=== PATIENT | female | born 1940 | race Caucasian/White ===

== ENCOUNTER → 2017-03-09 | Outpatient (CLI) | payer MEDICARE ==
--- NOTE | 2017-03-09 09:42 | REP ---
CAROTID ULTRASOUND: Real-time ultrasound evaluation and duplex Doppler interrogation of the extracranial carotid vasculature is performed. There is mild plaquing and narrowing in both carotid bulbs extending into the internal and external carotid arteries. Luminal narrowing is less than 50%. There is no evidence of hemodynamically significant stenosis of either internal carotid artery. Normal flow velocities are seen. The vertebral arteries demonstrate normal direction of flow. RIGHT LEFT Peak systolic velocity ICA 83.4 cm/s 82.6 cm/s End diastolic velocity ICA 27.2 cm/s 20 cm/s Peak systolic velocity CCA 119.4 cm/s 98.1 cm/s Peak systolic velocity ECA 82.3 cm/s 107.2 cm/s ICA/CCA ratio 0.7 0.84 IMPRESSION: Bilateral luminal narrowing of the internal carotid arteries less than 50%. No evidence of hemodynamically significant stenosis. Signed by Oral Huynh MD 03/09/2017 09:33 A
== END ==
LOC: M RAD 08:48
PROVIDERS: ATTEND Internal Medicine
DX: I44.7 Left bundle-branch block, unspecified (principal); Z95.1 Presence of aortocoronary bypass graft; I25.10 Atherosclerotic heart disease of native coronary artery without angina pectoris; R09.89 Other specified symptoms and signs involving the circulatory and respiratory systems

== ENCOUNTER → 2018-07-09 | Outpatient (CLI) | payer MEDICARE | LOC: M WHC 10:04 | DX: Z01.419 Encounter for gynecological examination (general) (routine) without abnormal findings (principal); Z12.31 Encounter for screening mammogram for malignant neoplasm of breast (principal); Z92.0 Personal history of contraception; Z12.12 Encounter for screening for malignant neoplasm of rectum; Z92.29 Personal history of other drug therapy | CPT/HCPCS: 77067 ==

== ENCOUNTER → 2019-04-02 | Outpatient (CLI) | payer MEDICARE ==
--- NOTE | 2019-04-02 15:47 | REP ---
Clinical: Pain. Technique: AP, lateral, bilateral oblique views of the right wrist. Findings: Comminuted Colles' fracture of the distal radius with overlying soft tissue swelling and posterior angulation. Impression: Acute comminuted Colles' fracture of the distal radial metaphysis. Electronically Signed by Rodney Burleson MD 04/02/2019 03:39 P
--- NOTE | 2019-04-02 15:48 | REP ---
Clinical: Pain. Fall. Technique: AP, lateral, bilateral oblique views of the right hand. Findings: There is a comminuted Colles' fracture of the distal radial metaphysis with posterior angulation and overlying soft tissue swelling. Remainder of the hand including carpal bones appear intact and normal. Impression: Comminuted Colles' fracture of the distal radial metaphysis. Electronically Signed by Rodney Burleson MD 04/02/2019 03:40 P
== END ==
LOC: M WUC 15:08
PROVIDERS: ATTEND Physician Assistant
DX: S52.531A Colles' fracture of right radius, initial encounter for closed fracture (principal); X58.XXXA Exposure to other specified factors, initial encounter; Y92.89 Other specified places as the place of occurrence of the external cause

== ENCOUNTER → 2020-08-13 | Outpatient (CLI) | payer MEDICARE ==
--- NOTE | 2020-08-13 10:40 | REPMRS ---
Patient History The patient states she had a clinical breast exam in August 2020. Family history of breast cancer at age 50 or over in paternal aunt. Took hormonal contraceptives for 1 year. Took unspecified hormones for 2 years. 3D TOMOSYNTHESIS WAS PERFORMED. The Bill Ghosh lifetime risk for breast cancer is 3.4%. Volpara breast density b. Digital Woman Screen Mammo: August 13, 2020 - Exam #: [id number] Bilateral CC and MLO view(s) were taken. Technologist: Dora Hudson, Technologist Prior study comparison: July 09, 2018, bilateral digital woman screen mammo performed at [facility]. June 15, 2016, digital woman screen mammo performed at [facility]. FINDINGS: There are scattered fibroglandular densities. There has been no change in the appearance of the mammogram from the prior studies. There is a mild amount of residual fibroglandular tissue which is fairly symmetric. There is no interval development of dominant mass, architectural distortion, or clustered microcalcification suggestive of malignancy. Assessment: BI-RADS/ACR category 1 mammogram. Negative Mammogram. Recommendation Routine screening mammogram in 1 year (for women over age 40). This mammogram was interpreted with the aid of an FDA-approved computer-aided dectection system. Electronically Signed By: Oral Huynh MD 08/13/20 [id number]
== END ==
LOC: M WHC 09:01
PROVIDERS: ATTEND Nurse Practitioner Family
DX: Z01.419 Encounter for gynecological examination (general) (routine) without abnormal findings (principal); Z12.31 Encounter for screening mammogram for malignant neoplasm of breast; Z92.0 Personal history of contraception; Z92.29 Personal history of other drug therapy
CPT/HCPCS: 77063; 77067; G0101

== ENCOUNTER → 2021-08-17 | Outpatient (CLI) | payer MEDICARE ==
--- NOTE | 2021-08-17 09:55 | REP ---
INDICATION: SCREEN MAMMO. COMPARISON: 08/13/2020 as well as other prior exams. TECHNIQUE: MLO and CC views bilateral breasts with tomosynthesis. FINDINGS: There is moderate fibroglandular tissue bilaterally. In the posterior, medial, inferior left breast an ill-defined nodular density is seen measuring about 7 mm in diameter. No other mass is seen. There is no other evidence of architectural distortion or clustered microcalcifications. The Volpara volumetric breast density pattern is B. IMPRESSION: BIRADS/ACR category 0, incomplete. Ill-defined 7 mm nodular density in the left breast posteriorly, inferiorly and medially. Recommend spot compression views and ultrasound to further evaluate. This patient's Tyrer-Cuzick lifetime breast cancer risk assessment score is 2.0%. This mammogram was interpreted with the aid of an FDA-approved computer-aided detection system. The patient states she had a clinical breast exam in over 1 year ago. The patient letter being requested is M0. RECOMMENDATION: Recommend spot compression views and ultrasound left breast as discussed above. <Electronically signed by Oral Huynh > 08/17/21 [id number]
== END ==
LOC: M WHC 07:41
PROVIDERS: ATTEND Internal Medicine
DX: Z12.31 Encounter for screening mammogram for malignant neoplasm of breast (principal)

== ENCOUNTER → 2021-08-19 | Outpatient (CLI) | payer MEDICARE ==
--- NOTE | 2021-08-19 10:38 | REP ---
INDICATION: LEFT BREAST ADD VIEWS. COMPARISON: 08/17/2021 as well as other prior exams. TECHNIQUE: ML and CC views left breast with tomosynthesis, with a marker placed on a medially located skin mole. FINDINGS: The suspected nodule in the medial left breast corresponds to a skin mole, which is marked on today's additional views. IMPRESSION: BIRADS/ACR category 2, benign. The suspected nodule in the medial left breast corresponds to a skin mole. This mammogram was interpreted with the aid of an FDA-approved computer-aided detection system. The patient letter being requested is M 1. RECOMMENDATION: Repeat screening mammography recommended 1 year (for women over 40). <Electronically signed by Oral Huynh > 08/19/21 [id number]
== END ==
LOC: M WHC 09:33
PROVIDERS: ATTEND Internal Medicine
DX: R92.2 Inconclusive mammogram (principal)
CPT/HCPCS: 77065; G0279

== ENCOUNTER → 2023-05-03 | Outpatient (CLI) | payer MEDICARE | LOC: M WHC 08:01 | PROVIDERS: ATTEND Nurse Practitioner Family | DX: Z12.31 Encounter for screening mammogram for malignant neoplasm of breast (principal) ==

== ENCOUNTER → 2024-03-24 | Outpatient (CLI) | payer MEDICARE | LOC: M RAD 09:02 | PROVIDERS: ATTEND Internal Medicine | DX: I65.23 Occlusion and stenosis of bilateral carotid arteries (principal) ==

== ENCOUNTER → 2024-05-28 | Outpatient (CLI) | payer MEDICARE | LOC: M WHC 09:16 | PROVIDERS: ATTEND Nurse Practitioner Family | DX: Z12.31 Encounter for screening mammogram for malignant neoplasm of breast (principal); R92.323 Mammographic fibroglandular density, bilateral breasts; M81.0 Age-related osteoporosis without current pathological fracture; Z13.820 Encounter for screening for osteoporosis ==

== ENCOUNTER → 2025-06-12 | Outpatient (CLI) | payer MEDICARE | LOC: M WHC 09:00 | PROVIDERS: ATTEND Nurse Practitioner Family | DX: Z12.31 Encounter for screening mammogram for malignant neoplasm of breast (principal); R92.323 Mammographic fibroglandular density, bilateral breasts ==